=== PATIENT | male | born 1955 | race Two or more races ===

== ENCOUNTER 2019-08-01 12:28 | Emergency (ER) | payer BC, SELFPAY ==
[2019-08-01] MEDS ORDERED: MAGNESIUM SULFATE 1GM/2ML (8MEQ/2ML) VIAL ONE (12:29)
[2019-08-01] MEDS ORDERED: EPINEPHrine 1MG/10ML SYRINGE 1.5IN ONE (12:29)
[2019-08-01] MEDS ORDERED: SODIUM BICARBONATE 8.4% INJ 50 ML SYRINGE ONE (12:29)
== END 2019-08-01 12:47 | disposition expired ==
LOC: EDBD 12:28 → M ED 12:28
DX: I46.9 Cardiac arrest, cause unspecified (principal); E11.9 Type 2 diabetes mellitus without complications; I10 Essential (primary) hypertension; E78.5 Hyperlipidemia, unspecified; I25.10 Atherosclerotic heart disease of native coronary artery without angina pectoris; Z95.5 Presence of coronary angioplasty implant and graft
CPT/HCPCS: 31500; 99291; J3475